=== PATIENT | male | born 1980 | race African-American/Black ===

== ENCOUNTER 2016-09-05 12:04 | Emergency (ER) | payer OTHER ==
[~2016-09-05] VITALS: Ht 190.5 cm; Wt 88.5 kg
[2016-09-05 12:23] VITALS: BP 135/71
[2016-09-05] MEDS ORDERED: KETOROLAC TROMETHAMINE INJ 60 MG/2 ML VIAL IM ONE ×2 (12:38→13:00)
[2016-09-05] MEDS ORDERED: LORAZEPAM 1 MG TABLET PO ONE (13:30)
[2016-09-05] MEDS ORDERED: LORAZEPAM 1 MG TABLET ONE (14:03)
== END 2016-09-05 14:16 | disposition home or self-care (01) ==
LOC: ER 12:06
DX: M54.5 Low back pain (principal); G89.29 Other chronic pain; F17.200 Nicotine dependence, unspecified, uncomplicated
CPT/HCPCS: 96372; 99283; A4606; J1885; Z7610

== ENCOUNTER 2018-08-17 10:44 | Emergency (ER) | payer SELFPAY ==
[~2018-08-17] VITALS: Ht 190.5 cm; Wt 99.8 kg
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
[2018-08-17] MEDS ORDERED: HYDROMORPHONE INJ 2 MG/ML DISP.SYRIN ONE (11:24)
[2018-08-17] MEDS ORDERED: diphenhydrAMINE HCL 50 MG/ML VIAL ONE (11:24)
[2018-08-17] MEDS ORDERED: diphenhydrAMINE HCL 50 MG/ML VIAL IM ONE (11:30)
[2018-08-17] MEDS ORDERED: HYDROMORPHONE INJ 0.5 MG/0.5 ML SYRINGE IM ONE (11:30)
[2018-08-17 12:05] VITALS: BP 118/70
== END 2018-08-17 12:05 | disposition home or self-care (01) ==
LOC: ER 10:46
DX: G89.29 Other chronic pain (principal); M54.5 Low back pain; F17.200 Nicotine dependence, unspecified, uncomplicated
CPT/HCPCS: 96372 ×2; 99283; A4606; J1170; J1200; Z7610